=== PATIENT | female | born 1945 | race Caucasian/White ===

== ENCOUNTER → 2019-04-10 | Outpatient (CLI) | payer MEDICARE | END | disposition home or self-care (01) | LOC: RAD 12:29 | PROVIDERS: ATTEND Neurological Surgery | DX: M41.85 Other forms of scoliosis, thoracolumbar region (principal); M25.78 Osteophyte, vertebrae; M41.9 Scoliosis, unspecified; M48.061 Spinal stenosis, lumbar region without neurogenic claudication; M51.36 Other intervertebral disc degeneration, lumbar region; M54.5 Low back pain | CPT/HCPCS: 72082 ==

== ENCOUNTER 2019-05-08 12:23 | Outpatient (CLI) | payer MEDICARE | END 2019-05-08 23:59 | disposition home or self-care (01) | LOC: CFH 12:23 | PROVIDERS: ATTEND Neurological Surgery | DX: M81.0 Age-related osteoporosis without current pathological fracture (principal) | CPT/HCPCS: 77080 ==

== ENCOUNTER 2019-06-18 15:22 | Outpatient (CLI) | payer MEDICARE | END 2019-06-18 23:59 | disposition home or self-care (01) | LOC: CFH 15:22 | PROVIDERS: ATTEND Neurological Surgery | DX: M51.35 Other intervertebral disc degeneration, thoracolumbar region (principal); M48.05 Spinal stenosis, thoracolumbar region; M46.1 Sacroiliitis, not elsewhere classified; M47.898 Other spondylosis, sacral and sacrococcygeal region; M41.84 Other forms of scoliosis, thoracic region | CPT/HCPCS: 72128; 72131 ==